=== PATIENT | female | born 1970 | race Caucasian/White ===

== ENCOUNTER 2018-03-12 05:15 | Day surgery (SDC) | payer BC ==
[~2018-03-12] VITALS: Ht 152.4 cm; Wt 64.4 kg
[2018-03-12] MEDS ORDERED: LIDOCAINE 2%, 20 ML MDV INJ ONE (07:30)
[2018-03-12] MEDS ORDERED: LR 1,000 ML IV.SOLN IV ONE (07:30)
[2018-03-12] MEDS ORDERED: KETOROLAC TROMETHAMINE 30 MG VIAL IVP ONE ×2 (07:30)
[2018-03-12] MEDS ORDERED: NS IRRIG SOLN 1000 ML IR ONE (07:30)
[2018-03-12] MEDS ORDERED: ONDANSETRON HCL 4 MG/2 ML VIAL IVP ONE (07:30)
[2018-03-12] MEDS ORDERED: MIDAZOLAM HCL 5 MG/5 ML VIAL IVP ONE (07:30)
[2018-03-12] MEDS ORDERED: SEVOFLURANE 15 MIN GAS INH ONE (07:30)
[2018-03-12] MEDS ORDERED: MEPERIDINE HCL/PF 100 MG/ML AMP IM ONE (07:30)
[2018-03-12] MEDS ORDERED: ROCURONIUM BROMIDE 10 MG/ML (ZEMURON) IV ONE (07:30)
[2018-03-12] MEDS ORDERED: CEFAZOLIN 1 GM IVPB PREMIX 50 ML IV ONE (07:30)
[2018-03-12] MEDS ORDERED: ONDANSETRON HCL 4 MG/2 ML VIAL IVP PRN ×2 (08:30→10:00)
[2018-03-12] MEDS ORDERED: KETOROLAC TROMETHAMINE 30 MG VIAL IVP PRN (08:30)
[2018-03-12] MEDS ORDERED: fentaNYL CITRATE/PF 100 MCG/2 ML AMP IVP PRN ×2 (08:30)
[2018-03-12] MEDS ORDERED: OXYCODONE/ACETAMINOPHEN 5-325 TABLET PO PRN (10:00)
[2018-03-12] MEDS ORDERED: PROMETHAZINE HCL 25 MG/ML AMP IM PRN (10:00)
[2018-03-12] MEDS ORDERED: ONDANSETRON HCL 4 MG/2 ML VIAL ONE (11:04)
[2018-03-12] MEDS ORDERED: OXYCODONE/ACETAMINOPHEN 5-325 TABLET ONE (11:30)
[2018-03-12] MEDS ORDERED: METOCLOPRAMIDE HCL 10 MG/2 ML VIAL ONE (11:52)
[2018-03-12] MEDS ORDERED: METOCLOPRAMIDE HCL 10 MG/2 ML VIAL IVP ONE (12:00)
[2018-03-12 12:28] VITALS: BP_SYST 109
== END 2018-03-12 14:20 | disposition home or self-care (01) ==
LOC: SMU 05:15 → SDS 05:15
PROVIDERS: ATTEND Obstetrics & Gynecology
DX: N80.0 Endometriosis of uterus (principal); Z79.899 Other long term (current) drug therapy; Z98.890 Other specified postprocedural states
CPT/HCPCS: 36415; 58571; 86886; 86900; 86901; 88307; C1727; J0690; J1885; J2001; J2175; J2250; J2405; J2765; J7120; E0190